=== PATIENT | female | born 1985 | race Caucasian/White ===

== ENCOUNTER 2017-08-14 20:02 | Emergency (ER) | payer OTHER ==
[~2017-08-14] VITALS: Ht 167.6 cm; Wt 69.8 kg
== END 2017-08-14 23:10 | disposition home or self-care (01) ==
LOC: ED 20:02
DX: O20.0 Threatened abortion (principal); Z87.891 Personal history of nicotine dependence; Z88.8 Allergy status to other drugs, medicaments and biological substances; Z91.040 Latex allergy status; Z3A.14 14 weeks gestation of pregnancy
CPT/HCPCS: 76801; 80053; 81001; 84702; 85025; 86900; 86901; 96361; 96374; 96375; 99284; J1200; J2405; J2765; J7030